=== PATIENT | female | born 1960 | race Caucasian/White ===

== ENCOUNTER 2017-07-23 21:16 | Emergency (ER) | payer OTHER ==
[~2017-07-23] VITALS: Ht 160 cm; Wt 64.9 kg
[~2017-07-23 21:16] MED LIST: ALTACE2.5 MG; CIPRO500 MG PO; PRILOSEC10 MG; PRILOSEC20 MG; PYRIDIUM DS200 MG PO; ZANTAC300 MG PO
== END 2017-07-23 22:56 | disposition home or self-care (01) ==
LOC: ER 21:16
DX: M54.5 Low back pain (principal)

== ENCOUNTER 2018-06-27 12:23 | Emergency (ER) | payer OTHER ==
[~2018-06-27] VITALS: Ht 160 cm; Wt 68.9 kg
[2018-06-27] MEDS ORDERED: OMEPRAZOLE20 M1 (12:59)
[2018-06-27] MEDS ORDERED: ATACAND16 MG (12:59)
== END 2018-06-27 19:13 | disposition home or self-care (01) ==
LOC: ER 12:23
DX: R10.32 Left lower quadrant pain (principal)

== ENCOUNTER 2019-11-27 19:37 | Emergency (ER) | payer OTHER ==
[~2019-11-27] VITALS: Ht 160 cm; Wt 68.9 kg
[~2019-11-27 19:37] MED LIST changes: +ATACAND16 MG; +OMEPRAZOLE20 M1
== END 2019-11-27 20:54 | disposition home or self-care (01) ==
LOC: ER 19:37
DX: M79.18 Myalgia, other site (principal); R07.89 Other chest pain

== ENCOUNTER 2021-07-23 02:53 | Emergency (ER) | payer OTHER ==
[~2021-07-23] VITALS: Ht 160 cm; Wt 68.9 kg
[2021-07-23] MEDS ORDERED: PRAVASTATIN SOD20 MG (03:09)
[2021-07-23] MEDS ORDERED: DOLOGESIC-DF 51 EACH PO (05:35)
== END 2021-07-23 05:40 ==
LOC: ER 02:53
DX: R53.81 Other malaise (principal); I10 Essential (primary) hypertension

== ENCOUNTER 2021-12-15 23:50 | Emergency (ER) | payer OTHER ==
[~2021-12-15] VITALS: Ht 160 cm; Wt 72.1 kg
[~2021-12-15 23:50] MED LIST changes: +DOLOGESIC-DF 51 EACH PO; +PRAVASTATIN SOD20 MG
[2021-12-16] MEDS ORDERED: ORPHENADRINE C100 MG PO (03:13)
[2021-12-16] MEDS ORDERED: KETO10TA2 PO (03:13)
== END 2021-12-16 03:17 ==
LOC: ER 23:50
DX: I10 Essential (primary) hypertension (principal); M54.2 Cervicalgia; Z88.9 Allergy status to unspecified drugs, medicaments and biological substances

== ENCOUNTER 2023-05-25 06:42 | Day surgery (SDC) | payer OTHER ==
[~2023-05-25] VITALS: Ht 160 cm; Wt 73.5 kg
[~2023-05-25 06:42] MED LIST changes: +ACID REDUCER20 M1 PO; +ADULT LOW DOSE81 M1 PO; +KETO10TA2 PO; +ORPHENADRINE C100 MG PO; +VITAMIN D PO; +ZYRTEC10 M3 PO
[2023-05-25] MEDS ORDERED: PERCOCET 5-3251 EACH PO (13:32)
== END 2023-05-25 16:35 | disposition home or self-care (01) ==
LOC: CIR.AMB 06:42
PROVIDERS: ATTEND Surgery
DX: C73 Malignant neoplasm of thyroid gland (principal); Z20.822 Contact with and (suspected) exposure to COVID-19; Z88.8 Allergy status to other drugs, medicaments and biological substances; E78.5 Hyperlipidemia, unspecified; I10 Essential (primary) hypertension

== ENCOUNTER 2025-06-20 18:46 | Emergency (ER) | payer OTHER ==
[~2025-06-20] VITALS: Ht 160 cm; Wt 68.0 kg
[~2025-06-20 18:46] MED LIST changes: +PERCOCET 5-3251 EACH PO
[2025-06-20] MEDS ORDERED: KETOROLAC TROMETHAMINE 30 MG VIAL IM STA (19:26)
[2025-06-20] MEDS ORDERED: DEXAMETHASONE SODIUM PHOSPHATE 4 MG/ML VIAL IM STA (19:26)
[2025-06-20] MEDS ORDERED: ORPHENADRINE CITRATE 30 MG/ML AMPUL IM STA (19:26)
[2025-06-20] MEDS ORDERED: ORPHENADRINE CITRATE 30 MG/ML AMPUL ONE (20:34)
[2025-06-20] MEDS ORDERED: DEXAMETHASONE SODIUM PHOSPHATE 4 MG/ML VIAL ONE (20:34)
[2025-06-20] MEDS ORDERED: KETOROLAC TROMETHAMINE 30 MG VIAL ONE (20:34)
[2025-06-20 20:51] LABS: BASO % 0.7 % (0.1-1.2); EOS # 0.31 (0.04-0.54); EOS % 4.2 % (0.7-7.0); LYMPH # 2.25 (1.18-3.74); LYMPH % 30.4 % (19.3-53.1); MEAN PLATELET VOLUME 10.80 fl (9.4-12.4); MONO # 0.45 (0.24-0.82); MONO % 6.1 % (4.7-12.5); NEUT # 4.33 (1.56-6.13); NEUT % 58.3 % (34.0-71.1); RED CELL DISTRIBUTION WIDTH 12.3 % (11.6-14.4)
[2025-06-20 20:53] LABS: ERYTHROCYTE SEDIMENTATION RATE 3 mm/hr (0-30)
[2025-06-20 21:14] LABS: INR 1.01
[2025-06-20 21:18] LABS: ALT/SGPT 35 U/L (12-78); AST/SGOT 20 U/L (15-37); BILIRUBIN TOTAL 0.48 mg/dL (0.3-1.2); BUN CREA RATIO 24 (7.0-25.0); CREATININE SERUM 0.62 mg/dL (0.55-1.02); GFR 97.53; GLOBULINA 3.5 G/DL (2.4-3.5); GLUCOSE FASTING 112 mg/dL (65-100); OSMOLALITY SERUM 287 MOSM/KG (275-295)
[2025-06-20 21:23] LABS: URINE APPEARANCE Clear; URINE BILIRRUBIN Negative (NEGATIVE); URINE BLOOD Negative; URINE COLOR Yellow; URINE GLUCOSE Negative (NEGATIVE); URINE KETONE Negative (NEGATIVE); URINE LEUKOCYTE Negative; URINE NITRATE Negative; URINE PROTEIN Negative (NEGATIVE); URINE UROBILINOGEN 0.2 E.U./dl
[2025-06-20 21:29] LABS: URINE BACTERIA 407.0 uL (0.0-1933); URINE CAST 0.14 uL (0.0-1.40); URINE EPITHELIAL CELLS 5.5 uL (0.0-38.8); URINE RBC 5.2 uL (0.0-20.8); URINE WBC 25.5 uL (0.0-23.2)
[2025-06-20] MEDS ORDERED: NORFLEX100MG PO (21:58)
[2025-06-20] MEDS ORDERED: KETO10TA2 PO (21:58)
== END 2025-06-20 22:21 | disposition home or self-care (01) ==
LOC: ER 18:47
PROVIDERS: Physician Assistant Medical
DX: M62.838 Other muscle spasm (principal); M54.2 Cervicalgia; M25.512 Pain in left shoulder; I10 Essential (primary) hypertension; E03.8 Other specified hypothyroidism; Z88.8 Allergy status to other drugs, medicaments and biological substances